=== PATIENT | male | born 1955 | race Caucasian/White ===

== ENCOUNTER → 2023-08-31 19:52 | Day surgery (SDC) | payer MEDICARE, OTHER, SELFPAY ==
[2023-08-31] VITALS (9 sets, daily range): BP systolic 126–163; BP diastolic 74–88; BMI 26.0
--- NOTE | 2023-08-31 12:35 | ED.GENMED ---
History of Present Illness
General
Chief Complaint: Abdominal Pain
Source: patient
Exam Limitations: none
Time Seen by Provider: 08/31/23 12:27
Nursing documentation reviewed up to this point in time: agreed with
History of Present Illness
History of Present Illness:
67-year-old male with no significant past medical history states he developed right lower quadrant pain yesterday, intermittent at first, constant today. Pain is now 5/10. He denies N/V/C/D. He denies fever or chills. Denies chest pain or
trouble breathing. Appetite has been poor since last night. He feels well otherwise.
Past History
Past History
ED Past Medical History: None
ED Past Surgical History: Orthopedic
Social History
Tobacco: Non-smoker
Alcohol: None
Personal:
Living: with family
Employment: Employed
Review of Systems
Review of Systems
Allergies reviewed?: Yes
All Other Systems: ROS reviewed and negative except as documented in HPI and ROS
Constitutional: Denies fever or chills
Respiratory: Denies trouble breathing
Cardiac: Denies chest pain
ABD/GI: Reports abdominal pain and anorexia; Denies nausea, vomiting, diarrhea or constipated
Phy Exam
Physical Exam
Physical Exam:
GENERAL: No acute distress. A&Ox3.
CONSTITUTIONAL: Afebrile.
EYES: Clear, conjunctivae normal
ENMT: moist mucus membranes, Pharynx nl
RESPIRATORY: Regular respirations, nonlabored, lungs clear.
CARDIOVASCULAR: Regular rate and rhythm, no murmurs, no rubs.
GI: Soft, tender right lower quadrant, no guarding, no rebound, normal BS
MUSCULOSKELETAL: Moves with ease. Well perfused.
SKIN: Warm, dry, pink
PSYCH: Normal mood and affect. Well kept, interactive and appropriate
NEUROLOGIC: Awake, alert and oriented. No focal neurological deficits
Course
Orders/Labs/Results
Orders:
Orders
08/31/23 12:33
Iohexol [Omnipaque] See Protocol PO NOW STA
08/31/23 12:35
US Abdomen - Appendix Only Urgent
Comment:
Reason For Exam: RLQ pain
08/31/23 13:01
Complete Blood Count/With Diff Urgent
Comprehensive Metabolic Panel Urgent
Lipase Urgent
08/31/23 14:07
CT Abd/pel W Iv And Oral Contr Urgent
Comment:
Reason For Exam: RLQ pain
08/31/23 15:59
Ketorolac [Toradol] 15 mg IV NOW STA
08/31/23 19:23
Bupivacaine Pf 0.5% [Sensorcaine 0.5% Single Dose] 30 ml .ROUTE .STK-MED ONE
08/31/23 19:42
CefoTEtan [Cefotan] 2,000 mg IV PRE PROCEDURE ONE
08/31/23 19:50
Fentanyl Citrate/Pf [Sublimaze] 100 mcg .ROUTE .STK-MED ONE
08/31/23 20:07
Dexamethasone Sod Phosphate [Decadron] 20 mg .ROUTE .STK-MED ONE
Lidocaine HCl/Pf [Xylocaine-Mpf 1% Vial] 50 mg .ROUTE .STK-MED ONE
Ondansetron Injectable [Zofran] 4 mg .ROUTE .STK-MED ONE
Propofol [Diprivan] 20 ml .ROUTE .STK-MED
Rocuronium [place] [Rocuronium] 50 mg .ROUTE .STK-MED ONE
08/31/23 20:12
Fentanyl Citrate/Pf [Sublimaze] 25 mcg IV PACU-Q5MPRN PRN
Fentanyl Citrate/Pf [Sublimaze] 50 mcg IV PACU-Q5MPRN PRN
Meperidine [Demerol] 12.5 mg IV PACU-Q5MPRN PRN
Ondansetron Injectable [Zofran] 4 mg IV PACU-ONCEPRN PRN
Prochlorperazine [Compazine] 5 mg IV PACU-ONCEPRN PRN
Notify MD As Directed
Notify physician if: for SDS patients with known or suspected sleep obstructive sleep apnea, monitor in the
PACU.
Notify MD for any apneic/desaturation episodes
O2 Therapy [RESP] Urgent
Titrate/Wean O2 to maintain O2 sat greater than (%): 92
Special Instructions: -Provide supplemental oxygen to achieve O2 sat of 92% or greater.
-After 15 min, may wean O2 and discontinue if patient is able to maintain O2 sat of 92%
or greater during recovery period.
If patient is a discharge home, without oxygen therapy, notify anestheiologist if
unable to maintain O2 SAT of 92% or greater on room air for MD clearance.
08/31/23 20:15
Normosol (Mult Electrolytes) [Normosol-R] 1,000 ml IV PER PROTOCOL
08/31/23 20:21
OR Pathology Routine
Pre-Operative Diagnosis: ACUTE APPENDICITIS
Post-Operative Diagnosis: SAME
Operative Procedure: LAPAROSCOPIC APPENDECTOMY
Surgeon: RAMONA
Circulating Nurse: CRUZ
Specimen Type: APPENDIX
08/31/23 20:24
Acetaminophen 1000MG/100Ml [Ofirmev] 1,000 mg in 100 ml .ROUTE .STK-MED
08/31/23 20:48
Neostigmine [Prostigmin] 3 mg .ROUTE .STK-MED ONE
08/31/23 20:49
Glycopyrrolate [Robinul] 0.2 mg .ROUTE .STK-MED ONE
Abnormal Lab Results
08/31/23
13:01
MCH 31.4 H pg
(27.0-31.0)
Absolute Monos (auto) 0.8 H 10^3/uL
(0.1-0.6)
Monocytes % 9.4 H %
(1.7-9.3)
Glucose 105 H mg/dl
(70-99)
Total Bilirubin 2.0 H mg/dl
(0.2-1.3)
08/31/23 13:01
08/31/23 13:01
Vital Signs
Initial and Last Documented VS:
Initial Vital Signs
Temp Pulse Resp BP Pulse Ox
98.1 F 64 16 163/83 98
08/31/23 11:58 08/31/23 11:58 08/31/23 11:58 08/31/23 11:58 08/31/23 11:58
Last Documented Vital Signs
Temp Pulse Resp BP Pulse Ox
98.1 F 61 18 132/88 98
08/31/23 11:58 08/31/23 16:00 08/31/23 16:00 08/31/23 16:00 08/31/23 16:00
MDM/Problems Addressed
Differential Diagnosis Includes:
Appendicitis, colitis
MDM/Problems Addressed:
67-year-old male with no significant past medical history states he developed right lower quadrant pain yesterday, intermittent at first, constant today. Pain is now 5/10. He denies N/V/C/D. He denies fever or chills. Denies chest pain or
trouble breathing. Appetite has been poor since last night. He feels well otherwise.
Afebrile, NAD
2:00 PM:
CBC normal
CMP normal
Lipase normal
Ultrasound of the appendix radiology report read: Appendix not visualized, no sonographic evidence of appendicitis
Will proceed to CT scan
4:00 PM:
Patient just returned from CAT scan
Requesting something for pain as his pain is now 6/10. Toradol IV ordered
4:45 PM
Text from radiologist: pt has Acute Appendicitis
Dr. Rubio notified.
Pt notified, remains stable, comfortable
*Critical Care Note
Total Time (30-74mins, 75-104mins- exclusive of procedures): Not Applicable
ED Attending Note
-
Portions of this chart may have been created with voice recognition software.� Occasional wrong word or��sound alike� substitutions may have occurred due to the inherent limitations of voice recognition software.
Discharge Plan
Departure
Patient Disposition: Admit
Date of Disposition: 08/31/23
Time of Disposition: 16:48
Admit to: Med/Surg
Presentation/result/management discussed w/ accepting MD/DO: Dr. Rubio
Condition: Good
Discharge Problem:
Acute appendicitis
Interventions
Interventions:
*Risk Screen - Suicide Last Done: 08/31/23 12:48
*General Assessment Last Done: 08/31/23 12:48
*Neglect/Abuse Screening Last Done: 08/31/23 12:48
ED- Fall Risk Assessment Last Done: 08/31/23 13:25
*ED COVID-19 Vaccine History Last Done: 08/31/23 12:48
*Nursing Disposition Last Done: 08/31/23 20:23
LP-Uqvctj-Ccfvwlgoxb Assessment Last Done: 08/31/23 13:25
Discharge Date and Time
Discharge Date/Time: 08/31/23 20:24
[2023-08-31] MEDS: OMNIPAQUE 50 ML PO (12:50)
[2023-08-31 13:21] LABS: % Basophils 0.3 % (0-2); % Eosinophils 1.6 % (0-6); % Immature Granulocytes 0.3 % (0-0.5); % Lymphocytes 21.3 % (20.5-51.1); % Monocytes 9.4 % (1.7-9.3); % Neutrophils 67.1 % (42.2-75.2); Absolute Eosinophils 0.1 10^3/uL (0-0.7); Absolute Lymphocytes 1.7 10^3/uL (1.2-3.4); Absolute Monocytes 0.8 10^3/uL (0.1-0.6); Absolute Neutrophils 5.3 10^3/uL (1.4-6.5); Hematocrit 41.8 % (39.0-52.0); Mean Corp Hgb Conc. 35.9 g/dL (33.0-37.0); Mean Corpuscular Hgb 31.4 pg (27.0-31.0); Mean Corpuscular Volume 87.4 fL (80.0-94.0); Nucleated Red Blood Cells % 0 % (-); Platelet Count 182 10^3/uL (130-400); Red Blood Cell Count 4.78 10^6/uL (4.70-6.10)
[2023-08-31 13:30] LABS: ALT (SGPT) 32 U/L (0-50); AST (SGOT) 30 U/L (17-59); Albumin 4.4 g/dl (3.5-5.0); Alkaline Phosphatase 60 U/L (38-126); Blood Urea Nitrogen 14 mg/dl (9-20); Calcium 9.5 mg/dl (8.4-10.2); Carbon Dioxide 28 mmol/L (22-30); Chloride 103 mmol/L (98-107); Estimated Creatinine Clearance 103 ml/min; Glucose 105 mg/dl (70-99); Lipase 41 U/L (23-300); Potassium 4.7 mmol/L (3.5-5.1); Sodium 137 mmol/L (135-145); Total Protein 6.8 g/dl (6.3-8.2); eGFR > 60.00
[2023-08-31] MEDS: TORADOL 15 MG IV (16:05)
--- NOTE | 2023-08-31 19:37 | HPS.HSE ---
Family Physician
-
Family Physician: Marciano Camarena
Chief Complaint
-
Abdominal pain
History of Present Illness
67-year-old healthy male who presents with right lower quadrant abdominal pain that began yesterday. The pain became more constant today prompting him to come to the ER. The pain is localized to the right lower quadrant. He has no appetite but he
denies any nausea or vomiting fevers or chills. His bowels are regular. His last colonoscopy was about 10 years ago.
Medical History
Past Medical History
Past Medical History: Reports None
Past Surgical History: Reports Orthopedic
Social History
Tobacco: Non-smoker
Alcohol: None
Drug: None
Personal: Partner
Living: With Family
Employment: Employed
Family History
Family History: Not pertinent and Other (Negative for colorectal cancer.)
Allergies / Home Medications
Allergies reflects when Allergies were last updated in [facility].
Home Medications with original date entered in [facility]
Allergy/Medication List:
NKDA
No home meds
Review of Systems
-
History Source: Patient
A 12 point ROS was completed and negative except as noted: Yes
Physical Exam
Vital Signs
Vital Signs
Temp Pulse Resp BP Pulse Ox
98.1 F 61 18 132/88 98
08/31/23 11:58 08/31/23 16:00 08/31/23 16:00 08/31/23 16:00 08/31/23 16:00
Physical Exam
General: Well Developed, Well Nourished and No Apparent Distress
HEENT: Anicteric
Respiratory: Clear
Cardiac: Regular Rhythm
GI: Soft, Non Distended and Tender (Right lower quadrant with focal guarding)
Genito-urinary: No costovertebral tender
Musculoskeletal: No Edema
Neuro: Awake and Alert
Laboratory Results
-
08/31/23 13:
08/31/23 13:01
Laboratory Results
Total Bilirubin 2.0 mg/dl (0.2-1.3) H 08/31/23 13:01
AST 30 U/L (17-59) 08/31/23 13:01
ALT 32 U/L (0-50) 08/31/23 13:
Alkaline Phosphatase 60 U/L (38-126) 08/31/23 13:
Lipase 41 U/L (23-300) 08/31/23 13:01
Data Reviewed
-
CT Scan: Image Personally Visualized and interpreted, Report Reviewed by me, Discussed with Patient and Discussed with Family
Ultrasound: Image Personally Visualized and interpreted, Report Reviewed by me, Discussed with Patient and Discussed with Family
Lab Data: Labs Reviewed by me, Discussed with Patient and Discussed with Family
Impression/Plan
-
IMPRESSION: Acute appendicitis.
I reviewed the current findings with the patient and his partner discussed treatment options including surgery versus antibiotics. We discussed the risks and benefits of each and he wishes to proceed with surgery. We discussed open versus
laparoscopic surgery and the plan is for laparoscopic appendectomy. Risks include, but are not limited to, bleeding, infection, adhesions, hernias, fistula, injury other structures, DVT, cardiopulmonary complications, and the complications from
anesthesia. I also reviewed the typical recovery and functional results. All questions answered and he wishes to proceed. Arrangements are in plan for the OR.
PLAN:
Laparoscopic appendectomy
== END ==
LOC: EMR 11:57 → OR 19:52
PROVIDERS: Registered Nurse; ATTENDING PHYSICIAN Surgery; EMERGENCY PHYSICIAN Emergency Medicine; FAMILY PHYSICIAN Family Medicine
DX: K35.80 Unspecified acute appendicitis (principal)
CPT/HCPCS: 44970; 88304; 74177; 76705; 80053; 83690; 85025; 96374; 99285; C1776; Q9967

== ENCOUNTER → 2023-12-09 06:36 | Day surgery (SDC) | payer MEDICARE, OTHER, SELFPAY | LOC: GI 06:36 | PROVIDERS: ATTENDING PHYSICIAN Surgery | DX: Z12.11 Encounter for screening for malignant neoplasm of colon (principal); D12.2 Benign neoplasm of ascending colon; D12.3 Benign neoplasm of transverse colon; D12.8 Benign neoplasm of rectum; K63.5 Polyp of colon | CPT/HCPCS: 45385; 45380; 88305 ==

== ENCOUNTER 2024-07-23 13:40 | Emergency (ER) | payer MEDICARE, OTHER, SELFPAY ==
[2024-07-23 13:46] VITALS: BP 149/70
--- NOTE | 2024-07-23 15:04 | ED.GENMED ---
History of Present Illness
<Serenity Smith PA-C - Last Filed: 07/25/24 15:07>
General
Chief Complaint: Swelling
Source: patient
Exam Limitations: none
Time Seen by Provider: 07/23/24 14:50
Nursing documentation reviewed up to this point in time: agreed with
History of Present Illness
History of Present Illness:
pt is a 68 y/o M with no chonic medical problems
here with pain and welling around his R ear that developed 5 days ago
he noticed it felt like inner ear pain/dull ache
he started top oflox drops
then 2 days ago he started amox 500 mg bid since it wasn't getting any better'
but he now feels that there is a swelling that is present junst inferior to his R ear/posterior to the mandible which is tender
he has no skin changes, trismus, dental pain
utd on vaccines
no ear drainage, hearing loss, fever,
Past History
<Serenity Smith PA-C - Last Filed: 07/25/24 15:07>
Past History
ED Past Medical History: None
ED Past Surgical History: Orthopedic
Social History
Tobacco: Non-smoker
Alcohol: None
Personal:
Living: with family
Employment: Employed
Phy Exam
<Serenity Smith PA-C - Last Filed: 07/25/24 15:07>
Physical Exam
Physical Exam:
GENERAL: Alert , in no apparent distress
EYE: pupils equal and reactive
NECK: Supple
ENT: b/l TM s clear, pharynx nonerythematous but no tonsillar hypertrophy or exudates no parotid swelling
no dentla tenderness
R auricle normla
mastoid notnender
swelling appreciated just posterior to mandible, inferior in the area of likely ant cervical chain with tenderness, no skin changes
CARDIAC: Regular rate and rhythm, no edema
LUNGS: Clear breath sounds bilaterally, no acute respiratory distress, no wheezes/rales/rhonchi, occ cough
ABDOMEN: Soft, without focal tenderness, no r/g, no cvat, normal bowel sounds
NEUROLOGICAL: Alert and oriented, no focal neuro deficits
SKIN: Warm and dry, skin intact.
MUSCULOSKELETAL: No edema, well perfused.
PSYCH: Normal and appropriate interaction.
Scores
<Alfredo Mccauley PA-C - Last Filed: 07/23/24 18:56>
Heart Failure Risk
Heart Failure Risk Score: Not Applicable
Course
<Serenity Smith PA-C - Last Filed: 07/25/24 15:07>
Orders/Labs/Results
Orders:
Orders
07/23/24 14:59
CT Neck With Iv Contrast Urgent
Comment:
Reason For Exam: R anterior cervical WHIT vs. mass
07/23/24 15:13
Complete Blood Count/With Diff Urgent
Comprehensive Metabolic Panel Urgent
Monotest Urgent
Comment: ADD ON
07/23/24 16:49
Add On- LAB Urgent
Tests Added?: mono
Abnormal Lab Results
07/23/24
15:13
MCH 31.4 H pg
(27.0-31.0)
Absolute Monos (auto) 0.8 H 10^3/uL
(0.1-0.6)
Monocytes % 10.2 H %
(1.7-9.3)
07/23/24 15:13
07/23/24 15:13
Vital Signs
Initial and Last Documented VS:
Initial Vital Signs
Temp Pulse Resp BP Pulse Ox
36.6 C 68 18 149/70 96
07/23/24 13:46 07/23/24 13:46 07/23/24 13:46 07/23/24 13:46 07/23/24 13:46
Last Documented Vital Signs
Temp Pulse Resp BP Pulse Ox
36.6 C 68 18 149/70 96
07/23/24 13:46 07/23/24 13:46 07/23/24 13:46 07/23/24 13:46 07/23/24 13:46
<Alfredo Mccauley PA-C - Last Filed: 07/23/24 18:56>
Orders/Labs/Results
Orders:
Orders
07/23/24 14:59
CT Neck With Iv Contrast Urgent
Comment:
Reason For Exam: R anterior cervical WHIT vs. mass
07/23/24 15:13
Complete Blood Count/With Diff Urgent
Comprehensive Metabolic Panel Urgent
Monotest Urgent
Comment: ADD ON
07/23/24 16:49
Add On- LAB Urgent
Tests Added?: mono
Abnormal Lab Results
07/23/24
15:13
MCH 31.4 H pg
(27.0-31.0)
Absolute Monos (auto) 0.8 H 10^3/uL
(0.1-0.6)
Monocytes % 10.2 H %
(1.7-9.3)
07/23/24 15:13
07/23/24 15:13
Vital Signs
Initial and Last Documented VS:
Initial Vital Signs
Temp Pulse Resp BP Pulse Ox
36.6 C 68 18 149/70 96
07/23/24 13:46 07/23/24 13:46 07/23/24 13:46 07/23/24 13:46 07/23/24 13:46
Last Documented Vital Signs
Temp Pulse Resp BP Pulse Ox
36.6 C 68 18 149/70 96
07/23/24 13:46 07/23/24 13:46 07/23/24 13:46 07/23/24 13:46 07/23/24 13:46
<Serenity Smith PA-C - Last Filed: 07/25/24 15:07>
MDM/Problems Addressed
Differential Diagnosis Includes:
lymphadenitis, parotidis, dental abscess
MDM/Problems Addressed:
68 y/o M
R sided neck swelling under ear with pain
no relief with topical abx in the ear canal or oral abx
tender lump posterior to mandible but more in the neck, inferior to the ear
suspicious for lymphadenitis
may need advancing abx to augmentin
will CT.
<Alfredo Mccauley PA-C - Last Filed: 07/23/24 18:56>
*Critical Care Note
Total Time (30-74mins, 75-104mins- exclusive of procedures): Not Applicable
<Alfredo Mccauley PA-C - Last Filed: 07/23/24 18:56>
Update Note
Update Note:
Received care of patient upon signout pending CT of the neck. CT of the neck demonstrates lesion within the parotid gland on the right side. Differential could include lymph node versus some type of neoplasm. Patient is in no respiratory distress
no trismus or drooling. Will switch current antibiotics to Augmentin. Will have him follow-up with ear nose and throat for further evaluation
ED Attending Note
<Serenity Smith PA-C - Last Filed: 07/25/24 15:07>
-
Portions of this chart may have been created with voice recognition software.� Occasional wrong word or��sound alike� substitutions may have occurred due to the inherent limitations of voice recognition software.
Discharge Plan
Departure
Patient Disposition: Home (Routine Discharge)
Date of Disposition: 07/23/24
Time of Disposition: 18:47
Patient with high blood pressure during this ER visit?: No
Discharge Problem:
Lymphadenopathy
Prescriptions:
New
amoxicillin-pot clavulanate 875-125 mg tablet
1 tab PO BID Qty: 20 0RF
No Action
oxycodone 5 mg tablet
5 mg PO Q6H PRN (Reason: Pain) Qty: 20 0RF
Referrals:
Gibson Dalton MD [Active, Otology]
Marciano Camarena MD [Family Provider, Family Practice]
Activity Restrictions/Additional Instructions:
Take antibiotics as directed. Follow-up with ENT. Return if worse otherwise
Interventions
Interventions:
*Risk Screen - Suicide Last Done: 07/23/24 13:46
*Neglect/Abuse Screening Last Done: 07/23/24 13:46
*Nursing Disposition Last Done: 07/23/24 19:00
ED- Cardiac Assessment Last Done: 07/23/24 15:10
ED- Pulmonary Assessment Last Done: 07/23/24 13:50
ED-Skin Assessment Last Done: 07/23/24 15:10
Discharge Date and Time
Discharge Date/Time: 07/23/24 19:00
Print Language: [place]
[2024-07-23 15:10] VITALS: BMI 26.9
[2024-07-23 15:19] LABS: % Basophils 0.6 % (0-2); % Immature Granulocytes 0.4 % (0-0.5); % Lymphocytes 27.4 % (20.5-51.1); % Monocytes 10.2 % (1.7-9.3); % Neutrophils 59.4 % (42.2-75.2); Absolute Basophils 0.1 10^3/uL (0-0.2); Absolute Eosinophils 0.2 10^3/uL (0-0.7); Absolute Lymphocytes 2.2 10^3/uL (1.2-3.4); Absolute Monocytes 0.8 10^3/uL (0.1-0.6); Absolute Neutrophils 4.7 10^3/uL (1.4-6.5); Hematocrit 46.2 % (39.0-52.0); Hemoglobin 16.6 g/dL (13.0-18.0); Mean Corp Hgb Conc. 35.9 g/dL (33.0-37.0); Mean Corpuscular Hgb 31.4 pg (27.0-31.0); Mean Corpuscular Volume 87.5 fL (80.0-94.0); Mean Platelet Volume 9.5 fL (7.4-10.4); Nucleated Red Blood Cells % 0 % (-); Platelet Count 192 10^3/uL (130-400); Red Blood Cell Count 5.28 10^6/uL (4.70-6.10); Red Cell Dist. Width 12.7 % (11.5-14.5); White Blood Cell Count 7.9 10^3/uL (4.8-10.8)
[2024-07-23 15:44] LABS: ALT (SGPT) 41 U/L (0-50); AST (SGOT) 33 U/L (17-59); Albumin 4.9 g/dl (3.5-5.0); Alkaline Phosphatase 62 U/L (38-126); Blood Urea Nitrogen 11 mg/dl (9-20); Calcium 9.4 mg/dl (8.4-10.2); Carbon Dioxide 28 mmol/L (22-30); Chloride 105 mmol/L (98-107); Estimated Creatinine Clearance 101 ml/min; Glucose 99 mg/dl (70-99); Potassium 4.6 mmol/L (3.5-5.1); Sodium 138 mmol/L (135-145); Total Bilirubin 1.1 mg/dl (0.2-1.3); Total Protein 7.5 g/dl (6.3-8.2); eGFR > 60.00
[2024-07-23 18:15] LABS: Monotest Negative (Negative)
== END 2024-07-23 19:00 | disposition home or self-care (01) ==
LOC: EMR 13:40
PROVIDERS: Physician Assistant; EMERGENCY PHYSICIAN Student in an Organized Health Care Education/Training Program; FAMILY PHYSICIAN Family Medicine
DX: R59.1 Generalized enlarged lymph nodes (principal); H92.01 Otalgia, right ear
CPT/HCPCS: 99284; 70491; 80053; 85025; 86308; Q9967